=== PATIENT | male | born 1995 | race Caucasian/White ===

== ENCOUNTER → 2016-07-13 | Outpatient (REF) | payer OTHER | LOC: M LAB REF 16:34 | PROVIDERS: ATTEND Physician Assistant | DX: J02.9 Acute pharyngitis, unspecified (principal) ==

== ENCOUNTER 2025-03-12 12:32 | Observation (INO) | payer OTHER ==
[~2025-03-12] VITALS: Ht 172.7 cm; Wt 64.6 kg
[2025-03-12] MEDS: ONDANSETRON 4MG 2ML VIAL IV ONE (17:16)
[2025-03-12] MEDS: FAMOTIDINE 20 MG/2 ML VIAL IVP ONE (17:16)
[2025-03-12 17:29] LABS: BASO # 0.0 10^3/uL (0.0-0.2); BASO % 0.3 % (0.0-1.0); EOS # 0.0 10^3/uL (0.0-0.5); EOS % 0.0 % (0.0-3.0); LYMPH # 2.3 10^3/uL (1.5-5.0); LYMPH % 19.1 % (24.0-44.0); MONO # 1.8 10^3/uL (0.0-0.8); MONO % 15.2 % (2.0-8.0); NEUTROPHILS # 7.7 10^3/uL (1.5-8.5); NEUTROPHILS % 64.8 % (36.0-66.0); PLATELET COUNT, AUTOMATED 333 10^3/uL (150-450)
[2025-03-12 17:52] LABS: ALT/SGPT 26 U/L (7.0-40); AST/SGOT 36 U/L (<34); CALCIUM LEVEL 9.6 MG/DL (8.5-10.1); CARBON DIOXIDE LEVEL 30 MMOL/L (20-31); CHLORIDE LEVEL 80 MMOL/L (98-107); CREATININE FOR GFR 1.09 MG/DL (0.70-1.30); GLOMERULAR FILTRATION RATE > 90.0 (>60); POTASSIUM SERUM 3.1 MMOL/L (3.5-5.1); SODIUM LEVEL 128 MMOL/L (136-145)
[2025-03-12] MEDS ORDERED: ISOVUE-370 76% 100 ML VIAL As Ordered ONE (17:59)
[2025-03-12] MEDS: POTASSIUM CHLORIDE 10MEQ SR TABLET PO ONE (19:10)
[2025-03-12] MEDS ORDERED: HOME MED LIST COMPLETE! XX SCH (19:50)
[2025-03-12] MEDS: NS (Normal Saline) 0.9% 1,000 ML IV ONE (20:10)
[2025-03-12] MEDS: [UNRECOGNIZED DRUG - OTHER] IV ONE (20:10)
[2025-03-12] MEDS: NS 0.9% IV ONE (20:10)
[2025-03-12 20:50] LABS: MAGNESIUM LEVEL 2.4 MG/DL (1.8-2.4)
[2025-03-12] MEDS ORDERED: LOPERAMIDE 2 MG CAPLET PO PRN (23:15)
[2025-03-12] MEDS ORDERED: D5W/0.9% SODIUM CHLORIDE 1,000 ML IV SCH (23:15)
[2025-03-12] MEDS ORDERED: KCL IV SCH (23:26)
[2025-03-12] MEDS ORDERED: D5W IV SCH (23:26)
[2025-03-12] MEDS ORDERED: SODIUM CHLORIDE IV SCH (23:26)
[2025-03-13] MEDS: POTASSIUM CHLORIDE 10MEQ SR TABLET PO SCH (00:18)
[2025-03-13 01:09] LABS: ALT/SGPT 24 U/L (7.0-40); AST/SGOT 31 U/L (<34); CALCIUM LEVEL 8.4 MG/DL (8.5-10.1); CARBON DIOXIDE LEVEL 31 MMOL/L (20-31); CHLORIDE LEVEL 88 MMOL/L (98-107); CREATININE FOR GFR 0.98 MG/DL (0.70-1.30); GLOMERULAR FILTRATION RATE > 90.0 (>60); POTASSIUM SERUM 3.2 MMOL/L (3.5-5.1); SODIUM LEVEL 130 MMOL/L (136-145)
[2025-03-13] MEDS: KCL 20MEQ IN D5/NS 1000ML 1,000 ML IV SCH (03:55)
[2025-03-13 04:00] VITALS: BP 124/78; TEMP 98.3; O2SAT 100
[2025-03-13 09:00] VITALS: BP_SYST 132; BP_SYST 137; BP_DIAS 64; BP_DIAS 73; TEMP 98; TEMP 98.2; O2SAT 97; O2SAT 98
[2025-03-13 09:24] LABS: ALT/SGPT 23 U/L (7.0-40); AST/SGOT 26 U/L (<34); CALCIUM LEVEL 8.4 MG/DL (8.5-10.1); CARBON DIOXIDE LEVEL 30 MMOL/L (20-31); CHLORIDE LEVEL 92 MMOL/L (98-107); CREATININE FOR GFR 0.84 MG/DL (0.70-1.30); GLOMERULAR FILTRATION RATE > 90.0 (>60); POTASSIUM SERUM 3.4 MMOL/L (3.5-5.1); SODIUM LEVEL 132 MMOL/L (136-145)
== END 2025-03-13 15:15 | disposition home or self-care (01) ==
LOC: M ED 12:32 → M ED INP 12:33 → M PED 03-13 03:53
PROVIDERS: ADMIT Student in an Organized Health Care Education/Training Program; ATTEND Student in an Organized Health Care Education/Training Program
DX: F12.988 Cannabis use, unspecified with other cannabis-induced disorder (principal); R11.2 Nausea with vomiting, unspecified
CPT/HCPCS: 36415; 74177; 80047; 80048; 80053; 80076; 83605; 83690; 83735; 85025; 87486; 87507; 87581; 87633; 87798; 93005; 93041; 96361; 96365; 96366; 96375; 99285; G0378; J1308; J2405; Q9967